=== PATIENT | female | born 1965 | race Caucasian/White ===

== ENCOUNTER 2018-06-01 07:42 | Day surgery (SDC) | END 2018-06-01 13:50 | disposition home or self-care (01) ==

== ENCOUNTER 2018-08-17 06:25 | Day surgery (SDC) | payer OTHER ==
--- NOTE | 2018-08-16 12:34 | PREOPHP ---
DATE OF ADMISSION: 08/17/2018 HISTORY OF PRESENT ILLNESS: This 53-year-old patient is admitted for elective cataract surgery of th e left eye. The patient previously underwent cataract surgery of the right eye approximately 2-1/2 m onths ago with excellent visual result. SYSTEMIC HISTORY: Positive for insulin-dependent diabetes mellitus for the past 23 years. The patie nt is also being treated for hypercholesterolemia and hypertension. CURRENT MEDICATIONS: Include: 1. Lantus. 2. Metformin. 3. Glipizide. 4. Simvastatin. 5. Benazepril. ALLERGIES: THERE ARE NO KNOWN ALLERGIES. PHYSICAL EXAMINATION: The visual acuity with best correction is 20/25 plus 2 in the right eye and 20 /40 in the left eye. Slit lamp examination reveals a posterior chamber intraocular lens in appropria te position in the right eye and a nuclear sclerotic and posterior subcapsular cataract in the left e ye. Applanation tonometry is 16 mmHg. Examination of the retina is within normal limits. DIAGNOSIS: Nuclear sclerotic and posterior subcapsular cataract, left eye. PLAN: Cataract extraction with lens implant, left eye. The risks and alternatives to the surgery sanchez ve been discussed with the patient as well as the hope for improvement in visual acuity leading to gr eater ability to perform activities of daily living. The patient understands this and agrees to proc eed with surgery. Dictated By: ANGELO WASHINGTON/TOM Conf#: [id number] DID#: [id number]
[2018-08-17] VITALS (8 sets, daily range): BP systolic 131–164; BP diastolic 69–84; PULSE 86–89; RESP 10–20; Ht 157.5 cm; Wt 67.8 kg
[~2018-08-17] VITALS: Ht 157.5 cm; Wt 67.8 kg
[~2018-08-17 06:25] MED LIST: ATOR10TA65 PO; BENA10TA4 PO; INSU100I33 SC; METF100010 PO
[2018-08-17] MEDS ORDERED: MOXIFLOXACIN 0.5% 3 ML OPH OPER SCH (07:00)
[2018-08-17] MEDS ORDERED: TROPICAMIDE 1% 15 ML OPH OPER SCH (07:00)
[2018-08-17] MEDS ORDERED: CYCLOPENTOLATE/PHENYLEPH 2 ML OPH OPER SCH (07:00)
[2018-08-17] MEDS ORDERED: SOD CHLORIDE 0.9% 1,000 ML IV SCH (07:00)
[2018-08-17] MEDS ORDERED: DICLOFENAC 0.1% 2.5 ML OPH OPER SCH (07:00)
[2018-08-17] MEDS ORDERED: METF100010 PO (07:54)
[2018-08-17] MEDS ORDERED: BENA20TA4 PO (07:55)
[2018-08-17] MEDS ORDERED: ATOR20TA38 PO (07:55)
[2018-08-17] MEDS ORDERED: INSU100I33 SC (07:56)
[2018-08-17] MEDS ORDERED: GLIP-160 PO (07:56)
--- NOTE | 2018-08-17 07:59 | PREAC ---
Date/Time of Note Date/Time of Note DATE: 08/17/18 TIME: 07:57 Anesthesia Eval and Record Evaluation Time Pre-Procedure Interview DATE: 08/17/18 TIME: 07:57 Age 53 Sex female NPO: 8 hrs Preoperative diagnosis left eye cataracts Planned procedure left eye cataract extraction intraocular lens implant (pt had RIGHT eye cataract done weeks ago by Dr Paul) Past Medical History Past Medical History: Includes Cardio: HTN, Dyslipidemia Endo: Diabetes Surgery & Anesthesia Issues No known issue Meds Anticoagulation: No Beta Neha within 24 hr: No Reason Beta Neha not given: Pt. not on B-Neha Reported Medications Insulin Glargine,Hum.rec.anlog (Basaglar Kwikpen U-100) 100 Unit/1 Ml Insuln.pen, 20 UNIT SC QHS, EA 08/17/18 Glipizide XL* (Glipizide XL*) 5 Mg Tabsr, 5 MG PO DAILY, TAB 08/17/18 Atorvastatin Calcium* (Atorvastatin Calcium*) 20 Mg Tablet, 20 MG PO QHS, #30 TAB 08/17/18 Benazepril Hcl* (Benazepril Hcl*) 20 Mg Tablet, 20 MG PO QHS, #60 TAB 08/17/18 Metformin Hcl* (Metformin Hcl*) 1,000 Mg Tablet, 1000 MG PO WITH BREAKFAST DINNE, #60 TAB 08/17/18 Discontinued Reported Medications Metformin Hcl* (Metformin Hcl*) 1,000 Mg Tablet, 1000 MG PO WITH BREAKFAST DINNE, #60 TAB 06/01/18 Insulin Glargine,Hum.rec.anlog (Basaglar Kwikpen U-100) 100 Unit/1 Ml Insu ln.pen, 20 UNIT SC QHS, EA 06/01/18 Atorvastatin Calcium (Atorvastatin Calcium) 10 Mg Tablet, 5 MG PO QHS, #30 TAB 06/01/18 Benazepril Hcl* (Benazepril Hcl*) 10 Mg Tablet, 10 MG PO DAILY, #30 TAB 06/01/18 Current Medications Diclofenac Sodium (Voltaren 0.1%) 1 drop Q5 MIN X 3 OPER Last administered on 08/17/18at 07:28; Admin Dose 1 DROP; Start 08/17/18 at 07:00 Tropicamide (Mydriacyl 1%) 1 drop Q5 MIN X3 OPER Last administered on 08/17/18at 07:28; Admin Dose 1 DROP; Start 08/17/18 at 07:00 Moxifloxacin HCl (Vigamox) 1 drop Q5 MIN X 3 OPER Last administered on 9at 07:28; Admin Dose 1 DROP; Start 08/17/18 at 07:00 Cyclopentolate/ Phenylephrine (Cyclomydril Oph 2 ml) 1 drop Q5 MIN X 3 OPER Last administered on 08/17/18at 07:28; Admin Dose 1 DROP; Start 08/17/18 at 07:00 Sodium Chloride 1,000 ml @ 25 mls/hr Q24H IV Last administered on 08/17/18 07:29; Admin Dose 25 MLS/HR; Start 08/17/18 at 07:00 Meds reviewed: Yes Allergies Coded Allergies: No Known Allergy (Unverified , 08/17/18) Allergies Reviewed: Yes Labs/Studies Labs Reviewed: Reviewed by anesthesiologist test: N/A Studies: ECG Pre-procedure Exam Last vitals Vital Signs Date Temp Pulse Resp B/P (MAP) Pulse Ox O2 O2 Flow FiO2 Time Delivery Rate 08/17/18 97.2 88 16 161/77 99 Room Air 07:42 (105) Airway: Adequate mouth opening, Adequate thyromental dist Mallampati: Mallampati II Teeth: Normal Lung: Normal Heart: Normal ASA Physical Status ASA physical status: 2 Emergency: None Planned Anesthetic General/MAC: MAC Planned Pain Management Parenteral pain med, Local by surgeon Pre-operative Attestations Prior to commencing anesthesia and surgery, the patient was re-evaluated, there was verification of: *The patient's identity *The results of appropriate recent lab work and preoperative vital signs *The above evaluation not changing prior to induction *Anesthetic plan, risk benefits, alternative and complications discussed with patient/family; questions answered; patient/family understands, accepts and wishes to proceed. IVETTE GARG Aug 17, 2018 07:59
[2018-08-17] MEDS ORDERED: LIDOCAINE 4% (MPF) 5 ML INJ ONE (08:20)
[2018-08-17] MEDS ORDERED: CEFAZOLIN 1 GM INJ ONE (08:20)
[2018-08-17] MEDS ORDERED: NA HYALURONATE/CHONDROITIN 0.5 ML SYG ONE (08:20)
[2018-08-17] MEDS ORDERED: CARBACHOL 0.01% 1.5 ML OPH INJ ONE (08:20)
[2018-08-17] MEDS ORDERED: DEXAMETHASONE 4 MG/ML 1 ML INJ ONE (08:20)
[2018-08-17] MEDS ORDERED: PROPOFOL 20 ML ONE (08:36)
[2018-08-17] MEDS ORDERED: LIDOCAINE 2% (SDV) 5 ML INJ ONE (08:36)
--- NOTE | 2018-08-17 09:15 | SIPON ---
Date/Time of Note Date/Time of Note DATE: 08/17/18 TIME: 09:13 Operative Report Preoperative Diagnosis nuclear sclerotic and cortical cataract os Postoperative Diagnosis same Operation/Procedure Performed cataract extraction with lens implant os Surgeon angelo wilkes server service assistant none Anesthesia: MAC Estimated blood loss: none Transfusion Required none Specimen none Grafts/Implants posterior chamber lens implant Complications none ANGELO WILKES MD Aug 17, 2018 09:15
[2018-08-17] MEDS ORDERED: FENTAnyl 50 MCG/ML VIAL ONE (09:17)
--- NOTE | 2018-08-17 09:19 | PAC ---
Date/Time of Note Date/Time of Note DATE: 08/17/18 TIME: 09:18 Post-Anesthesia Notes Post-Anesthesia Note Last documented vital signs Vital Signs Date Temp Pulse Resp B/P (MAP) Pulse Ox O2 O2 Flow FiO2 Time Delivery Rate 08/17/18 97.2 99 88 91 16 17 161/77 99 98 Room 07:42 091 (524) 164 Air RA Activity: WNL Respiratory function: WNL Cardiovascular function: WNL Mental status: Baseline Pain reasonably controlled: Yes Hydration appropriate: Yes Nausea/Vomiting absent: Yes ERIKA LEVIN Aug 17, 2018 09:19
[2018-08-17] MEDS ORDERED: ONDANSETRON 4 MG INJ IV PRN (09:30)
[2018-08-17] MEDS ORDERED: hydrALAzine 20 MG INJ IV PRN (09:30)
[2018-08-17] MEDS ORDERED: LABETALOL HCL 20MG INJ IV PRN (09:30)
[2018-08-17] MEDS ORDERED: FENTAnyl 50 MCG/ML VIAL IV PRN (09:30)
[2018-08-17] MEDS ORDERED: ACETAMINOPHEN 325 MG TAB PO PRN (09:30)
[2018-08-17] MEDS ORDERED: ACETAMINOPHEN 500 MG TAB PO PRN (09:30)
[2018-08-17] MEDS ORDERED: OXYCODONE/ACETAMINOPHEN (5/325) TAB PO PRN (09:30)
[2018-08-17] MEDS ORDERED: DIPHENHYDRAMINE 50 MG INJ IV PRN (09:30)
[2018-08-17] MEDS ORDERED: ALBUTEROL 0.083% (NEB) 2.5 MG/3 ML AMP HHN PRN (09:30)
--- NOTE | 2018-08-17 09:43 | OPR ---
DATE OF OPERATION: 08/17/2018 PREOPERATIVE DIAGNOSIS: Nuclear sclerotic and posterior subcapsular cataract, left eye. POSTOPERATIVE DIAGNOSIS: Nuclear sclerotic and posterior subcapsular cataract, left eye. OPERATION PERFORMED: Cataract extraction with lens implant, left eye. ANESTHESIA: Local standby. ANESTHESIOLOGIST: NICOLASA Harper PROCEDURE: The patient was brought to the operating room and placed on the table with an IV in place and the patient attached to an monitor tech. Oxygen was given via face mask. After some intravenous sedation was administered, local anesthesia was given using Xylocaine 2% with epinephrine, mixed with Marcaine 0.5%. This was given in a lid block and retrobulbar injection. The patient was then prepped and draped in the usual sterile manner. A wire lid speculum was inserted between the lids of the left eye. A Superblade was used to enter th e anterior chamber at the corneoscleral limbus at the 10:30 o'clock position. A separate incision wa s made using a 3.0-mm keratome which entered the corneoscleral junction at the 12 o'clock position. Through this 3-mm opening, an irrigating cystotome was introduced into the anterior chamber. The renuka mber was filled with Viscoat and an anterior capsulotomy was performed. Balanced salt solution was th en used for hydrodissection of the lens. A phacoemulsification handpiece was then brought into the f ield and introduced into the anterior chamber. The lens nucleus was emulsified using a deep groove a nd cracking the nucleus into quadrants. Following this, each quadrant was aspirated and emulsified a t the pupillary margin. After this was completed, the irrigation/aspiration handpiece was brought to the field, introduced in to the posterior chamber, and the lens cortical material was removed. When this was completed, addit ional Viscoat was injected into the anterior and posterior chambers. The 3-mm opening had its internal lips enlarged, and then the posterior chamber intraocular lens aime uring 26.5 diopters ([employer] model LI61AO) was then injected into the posterior c hamber using the lens injector system. After the leading haptic was introduced into the capsular bag and the lens optic was present in the center of the eye, the injector was removed and the trailing h aptic was grasped with non-toothed forceps and introduced into the capsular fold superiorly. A [place] ey hook was then used to rotate the intraocular lens so that the lips were oriented in the horizontal meridian. One 10-0 nylon suture was placed across the wound. Prior to tying, the irrigation/aspiration handpiece was reintroduced into the anterior chamber to rem ove the Viscoat. Miochol was instilled to constrict the pupil, and then the 10-0 nylon suture was ti ed. The ends were cut short and then the knot was buried. Then, 0.5 mL of dexamethasone and 0.5 mL of Ancef were injected into the sub-Tenon space in the infer ior fornix. Ciloxan drops were then placed on the surface of the eye. The speculum was removed and a patch was applied. The patient then left the operating room in satisfactory condition. Dictated By: ANGELO WASHINGTON/TOM Conf#: [id number] DID#: [id number] CC: ANGELO WILKES MD;*EndCC*
== END 2018-08-17 10:17 | disposition home or self-care (01) ==
LOC: SDS 06:25
PROVIDERS: ATTEND Ophthalmology
DX: H25.12 Age-related nuclear cataract, left eye (principal); Z79.84 Long term (current) use of oral hypoglycemic drugs; Z79.4 Long term (current) use of insulin; I10 Essential (primary) hypertension; E78.00 Pure hypercholesterolemia, unspecified
CPT/HCPCS: 66984; 82962; J0690; J1100; J3010; J7030; V2632; Z7512; Z7610